=== PATIENT | female | born 1970 | race Hispanic/Latino ===

== ENCOUNTER 2021-05-09 11:32 | Emergency (ER) | payer OTHER ==
[~2021-05-09] VITALS: Ht 152.4 cm; Wt 64.9 kg
[2021-05-09 12:23] LABS: APPEARANCE,URINE Cloudy (CLEAR); BILIRUBIN,URINE Negative (NEGATIVE); COLOR,URINE Yellow (YELLOW); GLUCOSE, URINE (UA) Negative (NEGATIVE); KETONES,URINE Trace mg/dL (NEGATIVE); LEUKOCYTE ESTERASE ,URINE Trace (NEGATIVE); NITRATE,URINE Negative (NEGATIVE); OCCULT BLOOD,URINE Negative (NEGATIVE); PH,URINE 5.5 (5.0-8.0); PROTEIN,URINE Negative (NEGATIVE); UROBILINOGEN,URINE 0.2 mg/dL (0.2-1.0)
[2021-05-09 12:27] LABS: BASOPHILS % (AUTO) 0.4 % (0.0-5.0); EOSINOPHILS % (AUTO) 0.4 % (0.0-8.0); HEMATOCRIT 27.2 % (36-48); MEAN CORPUSCULAR HGB CONC 30.1 g/dL (32.0-36.0); MEAN CORPUSCULAR VOLUME 69.6 fL (79-99); MONOCYTES % (AUTO) 6.8 % (3.0-13.0); NEUTROPHILS % (AUTO) 72.3 % (40.0-77.0); PLATELET COUNT (AUTO) 365 K/uL (130-400); RED BLOOD CELL COUNT(AUTO) 3.91 MIL/uL (4.00-5.50); RED CELL DISTRIBUTION WIDTH 18.5 % (11.0-15.5); WHITE BLOOD COUNT (AUTO) 8.1 K/uL (4.8-10.8)
[2021-05-09 12:30] LABS: AMPHET/METH SCREEN,URINE NEGATIVE (NEGATIVE); BARBITURATE SCREEN, URINE NEGATIVE (NEGATIVE); BENZODIAZEPINES SCREEN,URINE NEGATIVE (NEGATIVE); CANNABINOID SCREEN,URINE NEGATIVE (NEGATIVE); COCAINE SCREEN,URINE POSITIVE (NEGATIVE); OPIATE SCREEN,URINE NEGATIVE (NEGATIVE); PHENCYCLIDINE SCREEN,URINE NEGATIVE (NEGATIVE)
[2021-05-09 12:31] LABS: BACTERIA,URINE Few /HPF (None Seen); RBC,URINE 0-1 /HPF (0-1); SQUAMOUS EPITHELIAL CELL,UR 30-50 /HPF (0-2); WBC,URINE 0-1 /HPF (0-1)
[2021-05-09 12:36] LABS: CARBON DIOXIDE 25 mmol/L (21-32); CHLORIDE 105 mmol/L (101-111); CREATININE 0.6 mg/dL (0.5-1.5); GLOMERULAR FILTR. RATE CALC 112 mL/min (>60); GLUCOSE,RANDOM 95 mg/dL (70-105); POTASSIUM 3.4 mmol/L (3.5-5.1); SODIUM SERUM 142 mmol/L (136-145); UREA NITROGEN, BLOOD 9 mg/dL (7-18)
[2021-05-09 12:41] LABS: ALANINE AMINOTRANSFERASE 28 U/L (12-78); ALBUMIN 3.8 g/dL (3.5-5.0); ALCOHOL, BLOOD 4 mg/dL (0-10); ASPARTATE AMINOTRANSFERASE 22 U/L (10-37); BILIRUBIN,TOTAL 0.5 mg/dL (0.2-1.0); SALICYLATE < 2.8 mg/dL (2.8-20.0); TOTAL PROTEIN, SERUM 7.3 g/dL (6.0-8.3)
[2021-05-09 12:52] LABS: ACETAMINOPHEN < 1 mcg/mL (10-30)
[2021-05-09 16:35] VITALS: BP 124/72
== END 2021-05-09 16:37 | disposition home or self-care (01) ==
LOC: EDH 11:32
DX: F32.A Depression, unspecified (principal); R45.851 Suicidal ideations; F14.10 Cocaine abuse, uncomplicated; E78.00 Pure hypercholesterolemia, unspecified; I10 Essential (primary) hypertension; F17.200 Nicotine dependence, unspecified, uncomplicated
CPT/HCPCS: 36415; 80053; 80305; 81001; 85025; 93005; 99284; G0481

== ENCOUNTER → 2025-05-15 | Emergency (ER) | payer SELFPAY ==
[~2025-05-15] VITALS: Ht 152.4 cm; Wt 65.0 kg
[~2025-05-15] MED LIST: AMLO1CAP PO; AMOX1TAB16 PO; IBUP-1492 PO
[2025-05-15 18:22] VITALS: BP 187/96; PULSE 78; RESP 18; TEMP 98.2
--- NOTE | 2025-05-15 18:31 | ERN ---
ED Note History of Present Illness Stated Complaint: SHOULDER PAIN Chief Complaint: Shoulder Injury/Pain Time Seen by MD: 18:29 Dictation: PATIENT IS A 54-YEAR-OLD FEMALE HERE WITH RIGHT SHOULDER PAIN AFTER FALLING OFF A CHAIR YESTERDAY SHE SAID IT WAS A MIRROR SLIP FALL. THERE WAS NO LOC NO HEAD INJURY NO NAUSEA VOMITING NO TRAUMA ALERT CRITERIA. SHE STATES SHE HAS A HISTORY OF ARTHRITIS AND SHOULDER PAIN. Allergies: Coded Allergies: No Known Drug Allergies (Unverified Allergy, Unknown, 05/09/21) Home Meds Active Scripts Amoxicillin/Potassium Clav (Amox Tr-K Clv 875-125 mg Tab) 875 Mg-125 Mg Tablet, 1 TAB PO BID for 5 Days, #10 TAB 0 Refills Prov:BONIFACIO ARCHULETA MD 01/02/25 Reported Medications Amlodipine Besylate/Benazepril (Lotrel 10-20 mg Capsule) 10 Mg-20 Mg Capsule, 1 CAP PO DAILY for 30 Days, #30 CAP 0 Refills 01/02/25 Past Medical History Past Medical History: High Cholesterol, Hypertension Additional Past Medical Hx: HX OF ENCEPHALITIS Surgical History: Other, Surgical History Other: ABD HERNIA REPAIR, CEREBRAL ANGIOGRAM, BREAST AUGMENTAION Social History: Smokers, Drugs, ETOH, Lives with family RN Note Reviewed/Agreed w/PFSH: Yes Review of System Dictation CONSTITUTIONAL: Negative except for HPI HEAD/FACE: Negative except for HPI EENT: Negative except for HPI RESPIRATORY: Negative except for HPI GASTROINTESTINAL/ABDOMINAL: Negative except for HPI GENITOURINARY: Negative except for HPI MUSCULOSKELETAL: Negative except for HPI right shoulder pain INTEGUMENTARY: Negative except for HPI NEUROLOGICAL/PSYCH: Negative except for HPI HEMATOLOGIC/LYMPHATIC: Negative except for HPI All Systems Negative, Except as noted above. 13 point review of systems assessed and all negative except for above. Initial Vital Sign VS Vital Signs Date Time Temp Pulse Resp B/P (MAP) Pulse Ox O2 Delivery O2 Flow Rate FiO2 05/15/25 18:22 98.2 78 18 187/96 98 Room Air 0 Physical Exam Dictation Vital Signs reviewed General Appearance: Alert, oriented x 3, mild acute distress, well developed, nourished. Head and Face: non-traumatic. Eyes: PERRL, pink conjunctivas, eyelid no trauma, anterior chamber with arcus senilis. Ears: Pinnas intact and no signs of trauma or erythema ear canals clear and no discharge TM no erythema Nose: No discharge, no bleeding. Oropharynx: Mouth normal, tongue pink, pharynx clear,no erythema, tonsils no exudates, no abscesses noted, mucous membrane moist Neck: Supple, non-tender, no thyromegaly, no masses, no JVD, no bruits Breast:Deferred Chest:No tenderness, no crepitus, no paradoxical movement, no retractions Lungs:Clear, well-ventilated, symmetric, no rales, no wheezing, no rhonchi, no stridor, good breath sounds bilaterally Heart: Regular rate, regular rhythm, no murmur, no gallops Vascular: no peripheral edema, Abdomen: Soft, positive bowel sounds, nondistended, no guarding, nontender, no rebound, no masses no hepatomegaly, no splenomegaly, no Martinez's sign, no hernias. Rectal: Deferred Genital: Deferred Neurological: Normal speech, motor function intact, sensory function intact Musculoskeletal: Neck nontender, full range of motion, back nontender, full range of motion, Extremities: n mild right anterolateral shoulder pain Skin: Color pink, dry, no turgor, no rash, no lacerations, no abrasions, no contusions. Lymphatic: Deferred Results (Laboratory/Radiology) Laboratory/Radiology 1999/right shoulder x-ray negative other than calcification Labs Reviewed?: Yes ED Course ED Course Orders Procedure Category Date Status Time Shoulder Comp 2+Vws Rt RAD 05/15/25 Taken 18:30 Acetaminophen With PHA 05/15/25 Complete Codeine (Tylenol-Code 18:30 Current Medications Medications (Trade) Dose Ordered Sig/Amrik Route PRN Reason Start Time Stop Time Status Last Admin Dose Admin Acetaminophen/ Codeine Phosphate (TYLenol-coDEINE TAB) 2 tab ONCE ONCE PO 05/15/25 18:30 05/15/25 18:32 DC Vital Signs Date Time Temp Pulse Resp B/P (MAP) Pulse Ox O2 Delivery O2 Flow Rate FiO2 05/15/25 18:22 98.2 78 18 187/96 98 Room Air 0 203 times in waiting room with no answer.0 0/patient called She will be discharged without proper Follow-up with primary care provider in 1 to 2 days. Take medications as directed here in the emergency room. Okay to continue home medications unless otherwise discussed during your visit in the emergency room today. Return to your nearest emergency room if symptoms worsen or if there is no improvement. Call 911 if you need immediate assistance. Take Tylenol or Motrin [id number] as needed and if no contraindications are present. Increase oral hydration. A wound culture or urine culture was ordered here in the emergency room department please follow-up with primary care provider and advise them to get repeat ports from our facility. If you had any Fadi wrap/splints that were applied here, please do not remove them until you see your primary care or specialty. Medical Decision Making MDM Medical decision-making based on x-ray of right shoulder and pain management. Right shoulder x-ray negative Patient discharged home with contusion Patient not available for proper discharge DX & DISP Disposition: Discharge Departure Impression: Primary Impression: Contusion of right shoulder, initial encounter Additional Impression: Fall Condition: Stable Scripts Ibuprofen (Ibuprofen) 600 Mg Tablet 600 MG PO Q6H PRN for PAIN, #30 TAB Prov: JAN GARCIA 05/15/25 Additional Instructions: Follow-up with primary care provider in 1 to 2 days. Take medications as directed here in the emergency room. Okay to continue home medications unless otherwise discussed during your visit in the emergency room today. Return to your nearest emergency room if symptoms worsen or if there is no improvement. Call 911 if you need immediate assistance. Take Tylenol or Motrin [id number] as needed and if no contraindications are present. Increase oral hydration. A wound culture or urine culture was ordered here in the emergency room department please follow-up with primary care provider and advise them to get repeat ports from our facility. If you had any Fadi wrap/splints that were applied here, please do not remove them until you see your primary care or specialty. See your primary care doctor in the next 1-2 days. Cool compresses pain three to 4 times a day. Take ibuprofen as needed for pain. No lifting with the your right arm until cleared by your primary care doctor. Referrals: SELF,REFERRAL (PCP) Time of Disposition: 20:01 I have reviewed the case, and I agree with, Diagnosis and Plan JAN GARCIA May 15, 2025 18:31
--- NOTE | 2025-05-15 21:19 | HMCIMG ---
EXAM: CR right Shoulder, 2 views. CLINICAL HISTORY: RIGHT LATERAL SHOULDER PAIN AFTER FALLING OFF A CHAIR YESTERDAY. COMPARISON: None provided. FINDINGS: BONES: No acute fracture or aggressive appearing osseous lesion. JOINTS: No dislocation. The joint spaces are normal. SOFT TISSUES: Calcification is seen along the expected insertion of the supraspinatus tendon along the greater tubercle, concerning for calcific tendinitis. Suggested USG correlation IMPRESSION: Calcification along the expected insertion of the supraspinatus tendon along the greater tubercle is concerning for calcific tendinitis. Suggested USG correlation /Johnson
== END ==
LOC: EDH 18:19
DX: S40.011A Contusion of right shoulder, initial encounter (principal); I10 Essential (primary) hypertension; E78.00 Pure hypercholesterolemia, unspecified; F17.200 Nicotine dependence, unspecified, uncomplicated; Z86.61 Personal history of infections of the central nervous system; Z98.890 Other specified postprocedural states; W07.XXXA Fall from chair, initial encounter; Y93.89 Activity, other specified; Y92.89 Other specified places as the place of occurrence of the external cause; Y99.8 Other external cause status
CPT/HCPCS: 73030; 99283